=== PATIENT | male | born 1955 | race Caucasian/White ===

== ENCOUNTER 2022-11-01 14:48 | Emergency (ER) | payer MEDICARE, OTHER ==
[~2022-11-01] VITALS: Ht 180 cm; Wt 72.0 kg
--- NOTE | 2022-11-01 15:02 | ED Cough/URI ---
General Chief Complaint: Cough/Cold/Flu Symptoms Stated Complaint: CHEST CONGESTION/COUGH/HEADACHE Source: patient, family () Exam Limitations: no limitations (NIDHI WINCHESTER MD) History of Present Illness Date Seen by Provider: Nov 01, 2022 Time Seen by Provider: 15:00 Initial Comments Patient is a 66-year-old male with a history of DVT, pulmonary embolism and remote renal cell cancer who presents to the emergency room with 1 week of cough , congestion, runny nose, facial pain. He had 2 walk-in clinic visits during the last week with COVID and flu testing that were both negative. No chest x- ray was done. He is quite fatigued, decreased appetite. Some joint pains body aches. He denies diarrhea, burning with urination he states his urine is a little bit yellow. His cough is nonproductive. He was treated with an albuterol inhaler and Tessalon Perles. He is chronically anticoagulated on Xarelto as a result of his blood clots in the past. He denies chest pain. No real earache. Last dose of Tylenol was at noon. All other review of systems reviewed and negative except as stated Timing/Duration: week, getting worse Severity/Quality: severe, dry cough Associated Symptoms: chest pain/soreness, cough, fever/chills, muscle aches, nasal congestion, nasal drainage, sinus infection, sore throat (NIDHI WINCHESTER MD) Allergies and Home Medications Allergies Coded Allergies: No Known Drug Allergies (Unverified , 11/01/22) Patient Home Medication List Home Medication List Reviewed: Yes (NIDHI WINCHESTER MD) Amoxicillin/Potassium Clav (Amox Tr-K Clv 875-125 mg Tab) 875 Mg-125 Mg Tablet, 1 EACH PO BID Prescribed by: NIDHI WINCHESTER on 11/01/22 6305 Review of Systems Review of Systems Constitutional: see HPI, chills, fever ("hallucinating") EENTM: nose congestion, other (facial pain) Respiratory: cough Cardiovascular: no symptoms reported Gastrointestinal: no symptoms reported Genitourinary: no symptoms reported Musculoskeletal: other (body aches) Skin: no symptoms reported Psychiatric/Neurological: Headache (NIDHI WNICHESTER MD) All Other Systems Reviewed Negative Unless Noted: Yes (NIDHI WINCHESTER MD) Physical Exam Vital Signs - First Documented 11/01/22 14:50 Temp 37.8 Pulse 121 Resp 26 B/P (MAP) 160/86 (110) Pulse Ox 93 (NIDHI WINCHESTER MD) Capillary Refill : (CHIDI SILVA APRN) Height: '" Weight: lbs. oz. kg; BMI Method: (CHIDI SILVA APRN) General Appearance: WD/WN, no apparent distress, thin Eyes: Bilateral Eye Normal Inspection, Bilateral Eye PERRL, Bilateral Eye EOMI HEENT: TM abnormal (R) (erythema), pharyngeal erythema Neck: full range of motion, supple Respiratory: lungs clear, normal breath sounds, no respiratory distress, no accessory muscle use, other (room air sats 93/94%) Cardiovascular: regular rate, rhythm (tachy 114) Gastrointestinal: normal bowel sounds, non tender, soft Neurologic/Psychiatric: alert, normal mood/affect, oriented x 3 Skin: normal color, warm/dry, other (feels warm) (NIDHI WINCHESTER MD) Focused Exam Lactate Level 11/01/22 15:15: Lactic Acid Level 1.41 (NIDHI WINCHESTER MD) Lactic Acid Level Laboratory Tests Test 11/01/22 15:15 Lactic Acid Level 1.41 MMOL/L (0.50-2.00) (NIDHI WINCHESTER MD) Progress/Results/Core Measures Suspected Sepsis SIRS Temperature: Pulse: Respiratory Rate: Laboratory Tests 11/01/22 15:15: White Blood Count 12.0H Blood Pressure / Mean: 11/01/22 15:15: Lactic Acid Level 1.41 Laboratory Tests 11/01/22 15:15: Creatinine 1.15, INR Comment 1.6H, Platelet Count 365, Total Bilirubin 0.6 (CHIDI SILVA APRN) SIRS Laboratory Tests 11/01/22 15:15: White Blood Count 12.0H 11/01/22 15:15: Lactic Acid Level 1.41 Laboratory Tests 11/01/22 15:15: Creatinine 1.15, INR Comment 1.6H, Platelet Count 365, Total Bilirubin 0.6 (NIDHI WINCHESTER MD) Results/Orders Lab Results Laboratory Tests Test 11/01/22 15:15 11/01/22 15:32 Range/Units White Blood Count 12.0 H 4.3-11.0 10^3/uL Red Blood Count 4.34 4.30-5.52 10^6/uL Hemoglobin 13.9 13.3-17.7 g/dL Hematocrit 40 40-54 % Mean Corpuscular Volume 93 80-99 fL Mean Corpuscular Hemoglobin 32 25-34 pg Mean Corpuscular Hemoglobin Concent 34 32-36 g/dL Red Cell Distribution Width 13.2 10.0-14.5 % Platelet Count 365 130-400 10^3/uL Mean Platelet Volume 10.5 9.0-12.2 fL Immature Granulocyte % (Auto) 1 % Neutrophils (%) (Auto) 81 H 42-75 % Lymphocytes (%) (Auto) 7 L 12-44 % Monocytes (%) (Auto) 11 0-12 % Eosinophils (%) (Auto) 0 0-10 % Basophils (%) (Auto) 0 0-10 % Neutrophils # (Auto) 9.7 H 1.8-7.8 10^3/uL Lymphocytes # (Auto) 0.9 L 1.0-4.0 10^3/uL Monocytes # (Auto) 1.3 H 0.0-1.0 10^3/uL Eosinophils # (Auto) 0.0 0.0-0.3 10^3/uL Basophils # (Auto) 0.0 0.0-0.1 10^3/uL Immature Granulocyte # (Auto) 0.1 0.0-0.1 10^3/uL Neutrophils % (Manual) 71 % Lymphocytes % (Manual) 7 % Monocytes % (Manual) 11 % Eosinophils % (Manual) 0 % Basophils % (Manual) 0 % Band Neutrophils 11 % Blood Morphology Comment NORMAL Prothrombin Time 19.5 H 12.2-14.7 SEC INR Comment 1.6 H 0.8-1.4 Activated Partial Thromboplast Time 60 H 24-35 SEC Sodium Level 132 L 135-145 MMOL/L Potassium Level 4.0 3.6-5.0 MMOL/L Chloride Level 98 98-107 MMOL/L Carbon Dioxide Level 22 21-32 MMOL/L Anion Gap 12 5-14 MMOL/L Blood Urea Nitrogen 15 7-18 MG/DL Creatinine 1.15 0.60-1.30 MG/DL Estimat Glomerular Filtration Rate 70 BUN/Creatinine Ratio 13 Glucose Level 127 H 70-105 MG/DL Lactic Acid Level 1.41 0.50-2.00 MMOL/L Calcium Level 9.5 8.5-10.1 MG/DL Corrected Calcium 9.9 8.5-10.1 MG/DL Total Bilirubin 0.6 0.1-1.0 MG/DL Aspartate Amino Transf (AST/SGOT) 36 H 5-34 U/L Alanine Aminotransferase (ALT/SGPT) 26 0-55 U/L Alkaline Phosphatase 61 40-136 U/L Total Protein 8.3 H 6.4-8.2 GM/DL Albumin 3.5 3.2-4.5 GM/DL Urine Color ORANGE Urine Clarity CLEAR Urine pH 6.0 5-9 Urine Specific [place] 1.025 H 1.016-1.022 Urine Protein 3+ H NEGATIVE Urine Glucose (UA) NEGATIVE NEGATIVE Urine Ketones 1+ H NEGATIVE Urine Nitrite NEGATIVE NEGATIVE Urine Bilirubin NEGATIVE NEGATIVE Urine Urobilinogen 2.0 < = 1.0 MG/DL Urine Leukocyte Esterase NEGATIVE NEGATIVE Urine RBC (Auto) 3+ H NEGATIVE Urine RBC 0-2 /HPF Urine WBC RARE /HPF Urine Squamous Epithelial Cells RARE /HPF Urine Crystals PRESENT H /LPF Urine Amorphous Sediment RARE MARGY URATES H /LPF Urine Bacteria NEGATIVE /HPF Urine Casts NONE /LPF Urine Mucus NEGATIVE /LPF Urine Culture Indicated NO (NIDHI WINCHESTER MD) My Orders Orders - NIDHI WINCHESTER MD Cbc With Automated Diff (11/01/22 15:11) Comprehensive Metabolic Panel (11/01/22 15:11) Blood Culture (11/01/22 15:11) Sputum Culture (11/01/22 15:11) Urinalysis (11/01/22 15:11) Urine Culture (11/01/22 15:11) Protime With Inr (11/01/22 15:11) Partial Thromboplastin Time (11/01/22 15:11) Chest 1 View, Ap/Pa Only (11/01/22 15:11) Ed Iv/Invasive Line Start (11/01/22 15:11) Ed Iv/Invasive Line Start (11/01/22 15:11) Vital Signs Adult Sepsis Patie Q15M (11/01/22 15:11) O2 (11/01/22 15:11) Remove Rings In Anticipation O (11/01/22 15:11) Lactic Acid Analyzer (11/01/22 15:11) Manual Differential (11/01/22 15:15) Ns Iv 1000 Ml (Sodium Chloride 0.9%) (11/01/22 16:30) Ceftriaxone 1 Gm Pre-Mix (Rocephin 1 Gm (11/01/22 16:30) Acetaminophen Tablet (Tylenol Tablet) (11/01/22 16:30) (NIDHI WINCHESTER MD) Medications Given in ED Current Medications Medications Dose Ordered Sig/Joseline Route Start Time Stop Time Status Last Admin Dose Admin Acetaminophen 1,000 mg ONCE ONCE PO 11/01/22 16:30 11/01/22 16:31 DC 11/01/22 16:45 1,000 MG Ceftriaxone Sodium/Dextrose 50 ml @ 100 mls/hr ONCE ONCE IV 11/01/22 16:30 11/01/22 16:59 DC 11/01/22 16:45 100 MLS/HR (NIDHI WINCHESTER MD) Vital Signs/I&O 11/01/22 14:50 Temp 37.8 Pulse 121 Resp 26 B/P (MAP) 160/86 (110) Pulse Ox 93 (NIDHI WINCHESTER MD) Vital Signs/I&O Capillary Refill : (CHIDI SILVA APRN) Progress Note : Time: 16:24 Progress Note Patient seen and examined, 66-year-old who has been sick for a week. Quite tachycardic 114, blood pressure is good, not hypoxic however oxygen saturations 93 to 94% on room air. Evaluation today includes a "septic work-up". He has a slight leukocytosis, normal renal function, normal liver function. Coags are out as would be expected on Xarelto. Chest x-ray shows patchy pneumonia. Clinically he also has evidence of sinusitis. No concerns for sepsis at this time. His lactic acid is "normal". He is not hypotensive. He feels "okay" right now. We will give him a liter of normal saline as well as a gram of Rocephin and he is due for Tylenol. Recommended increasing fluid intake. We will send him home with Augmentin twice a day for the next 7 days. Recommended probiotics as well as [id number] decongestants, cough and cold medications in addition to his Tessalon. Return precautions provided. Both he and his verbalized understanding of the plan of care, they are comfortable with it.. All questions are sought and answered. Patient is stable for discharge (NIDHI WINCHESTER MD) Diagnostic Imaging Diagonstic Imaging: Xray Plain Films/CT/US/NM/MRI: chest Comments [facility], [place] NAME: KALLIE MARTINEZ [facility] REC#: [id number] PT STATUS: REG ER : 1955 PHYSICIAN: NIDHI WINCHESTER MD ADMIT DATE: 11/01/22/ER Signed Date of Exam:11/01/22 CHEST 1 VIEW, AP/PA ONLY EXAM: Chest 1 view, AP/PA only INDICATION: Cough. Fever. COMPARISON: None. FINDINGS: Normal heart size and central pulmonary vascularity. Patchy airspace opacities, bilaterally, greater on the right. No pleural effusion or pneumothorax. No acute osseous finding. IMPRESSION: Patchy airspace opacities, greater on the right, compatible with pneumonitis. Dictated by: Dictated on workstation # [id number] Dict: 11/01/22 1532 Trans: 11/01/22 1604 PJE [id number] Interpreted by: TOOTIE GARCIA MD Electronically signed by: TOOTIE GARCIA MD 11/01/22 1605 (NIDHI WINCHESTER MD) Departure Impression Primary Impression: Pneumonia Qualified Codes: J18.9 - Pneumonia, unspecified organism Additional Impression: Sinusitis Qualified Codes: J01.00 - Acute maxillary sinusitis, unspecified Disposition: HOME, SELF-CARE Condition: Improved Departure-Patient Inst. Decision time for Depature: 16:16 (NIDHI WINCHESTER MD) Referrals: NANCIE UP MD (PCP/Family) Primary Care Physician Patient Instructions: Sinusitis, Adult ED, Pneumonia, Adult ED Add. Discharge Instructions: Drink lots of fluids to stay well-hydrated. Take the antibiotics as directed for the next 7 days. Augmentin 875mg twice a day. Continue the Tessalon Perles as needed for cough and congestion. You can also take vaka-rkh-qbklvvv Robitussin, Robitussin-DM or Tylenol flu 1 g of Tylenol, 2 extra strength tablets every 6 hours as needed for fever over 100.4. Return to the emergency department for any new, concerning or worsening complaints. Scripts Amoxicillin/Potassium Clav (Amox Tr-K Clv 875-125 mg Tab) 875 Mg-125 Mg Tablet 1 EACH PO BID for 7 Days, #14 TAB Prov: NIDHI WINCHESTER MD 11/01/22 CHIDI SILVA APRN Nov 01, 2022 15:02 NIDHI WINCHESTER MD Nov 01, 2022 15:15
--- NOTE | 2022-11-01 15:35 | Diagnostic Imaging Report ---
EXAM: Chest 1 view, AP/PA only INDICATION: Cough. Fever. COMPARISON: None. FINDINGS: Normal heart size and central pulmonary vascularity. Patchy airspace opacities, bilaterally, greater on the right. No pleural effusion or pneumothorax. No acute osseous finding. IMPRESSION: Patchy airspace opacities, greater on the right, compatible with pneumonitis. Dictated by: Dictated on workstation # [id number]
[2022-11-01 15:38] LABS: BASOPHILS % (AUTO) 0 % (0-10); EOSINOPHILS % (AUTO) 0 % (0-10); HEMATOCRIT 40 % (40-54); HEMOGLOBIN 13.9 g/dL (13.3-17.7); LYMPHOCYTES # (AUTO) 0.9 10^3/uL (1.0-4.0); LYMPHOCYTES % (AUTO) 7 % (12-44); MEAN CORPUSCULAR HEMOGLOBIN 32 pg (25-34); MEAN CORPUSCULAR HGB CONC 34 g/dL (32-36); MEAN CORPUSCULAR VOLUME 93 fL (80-99); MEAN PLATELET VOLUME 10.5 fL (9.0-12.2); MONOCYTES # (AUTO) 1.3 10^3/uL (0.0-1.0); MONOCYTES % (AUTO) 11 % (0-12); NEUTROPHILS # (AUTO) 9.7 10^3/uL (1.8-7.8); NEUTROPHILS % (AUTO) 81 % (42-75); PLATELET COUNT 365 10^3/uL (130-400)
[2022-11-01 15:39] LABS: BILIRUBIN,URINE NEGATIVE (NEGATIVE); CLARITY,URINE CLEAR; COLOR,URINE ORANGE; GLUCOSE, URINE (UA) NEGATIVE (NEGATIVE); KETONES,URINE 1+ (NEGATIVE); LEUKOCYTE ESTERASE ,URINE NEGATIVE (NEGATIVE); NITRITE,URINE NEGATIVE (NEGATIVE); PROTEIN,URINE 3+ (NEGATIVE)
[2022-11-01 15:44] LABS: ALBUMIN 3.5 GM/DL (3.2-4.5)
[2022-11-01 15:45] LABS: CALCIUM 9.5 MG/DL (8.5-10.1)
[2022-11-01 15:47] LABS: TOTAL PROTEIN 8.3 GM/DL (6.4-8.2)
[2022-11-01 15:48] LABS: BILIRUBIN,TOTAL 0.6 MG/DL (0.1-1.0)
[2022-11-01 15:49] LABS: BACTERIA,URINE NEGATIVE /HPF; RBC,URINE 0-2 /HPF; SQUAMOUS EPITHELIAL CELL,UR RARE /HPF; WBC,URINE RARE /HPF
[2022-11-01 15:50] LABS: CREATININE SERUM 1.15 MG/DL (0.60-1.30)
[2022-11-01 15:50] LABS: AMORPHOUS SEDIMENT,UR RARE AMOR URATES /LPF
[2022-11-01 15:55] LABS: INR 1.6 (0.8-1.4); PROTHROMBIN TIME PATIENT 19.5 SEC (12.2-14.7)
[2022-11-01 16:01] LABS: BAND NEUTROPHILS 11 %; BASOPHILS % (MANUAL) 0 %; EOSINOPHILS % (MANUAL) 0 %; LYMPHOCYTES % (MANUAL) 7 %; MONOCYTES % (MANUAL) 11 %; NEUTROPHILS % (MANUAL) 71 %; RBC MORPH NORMAL
[2022-11-01] MEDS ORDERED: AMOX1TAB12 PO (16:24)
[2022-11-01] MEDS ORDERED: NS IV 1000 ML 1,000 ML IV SCH (16:30)
[2022-11-01] MEDS ORDERED: ACETAMINOPHEN 500 MG TAB (TYLENOL) PO ONE (16:30)
[2022-11-01] MEDS ORDERED: cefTRIAXone 1 GM PRE-MIX 50 ML IV ONE (16:30)
[2022-11-01 17:59] VITALS: BP 142/82
== END 2022-11-01 17:59 | disposition home or self-care (01) ==
LOC: ER 14:52
DX: J18.9 Pneumonia, unspecified organism (principal); J32.9 Chronic sinusitis, unspecified; Z86.711 Personal history of pulmonary embolism; Z86.718 Personal history of other venous thrombosis and embolism; Z79.01 Long term (current) use of anticoagulants
CPT/HCPCS: 36415; 71045; 80053; 81000; 83605; 85007; 85027; 85610; 85730; 87040; 87088